=== PATIENT | female | born 1955 | race Caucasian/White ===

== ENCOUNTER 2016-07-21 17:21 | Emergency (ER) | payer OTHER ==
[~2016-07-21] VITALS: Ht 175.3 cm; Wt 96.2 kg
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
[2016-07-21 20:29] VITALS: BP 151/97
[2016-07-21] MEDS ORDERED: CYCLOBENZAPRINE 10 MG TABLET. PO ONE (20:45)
[2016-07-21] MEDS ORDERED: NAPROXEN 250 MG TABLET PO ONE (20:45)
[2016-07-21] MEDS ORDERED: CYCL10TA2 PO (20:54)
[2016-07-21] MEDS ORDERED: NAPR250T2 PO (20:54)
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
== END 2016-07-21 21:00 | disposition home or self-care (01) ==
LOC: ER 17:21
DX: R51 Headache (principal); M54.2 Cervicalgia; M25.512 Pain in left shoulder; Z88.5 Allergy status to narcotic agent; V43.92XA Unspecified car occupant injured in collision with other type car in traffic accident, initial encounter; Y92.413 State road as the place of occurrence of the external cause; Y93.89 Activity, other specified; Y99.8 Other external cause status
CPT/HCPCS: 70450; 72125; 73030; 99284-25